=== PATIENT | male | born 1980 | race Caucasian/White ===

== ENCOUNTER 2023-02-12 18:04 | Emergency (ER) | payer MEDICAID, SELFPAY ==
[2023-02-12 18:08] VITALS: BP 120/68; PULSE 89; RESP 16; TEMP 36.6; O2SAT 99; BMI 22.2
--- NOTE | 2023-02-12 18:18 | XR_ITS ---
The [address] [address] Patient Name: ALEXANDRIA LOPEZ MRN: [id number] date: 1980 Sex: M Assigned Patient Location: ER Current Patient Location: Accession/Order Number: [id number] Exam Date: 02/12/2023 18:25 Report Date: 02/12/2023 19:00 At the request of: ALIREZA DIAS Procedure: XR chest 1V EXAMINATION: XR chest 1V 02/12/2023 3:59 PM PST HISTORY: Cough TECHNIQUE: Single frontal view of the chest acquired. COMPARISONS: Chest x-ray 03/21/2012. FINDINGS: Lines/tubes/other: None. Heart and mediastinum: The heart and the mediastinum are within normal limits for technique. Bones: No acute osseous abnormality. Lungs: Small benign calcified granuloma in the lateral aspect of the right upper lung zone. No evidence of pneumonia or pulmonary edema. Pleura: There is no significant pleural effusion or pneumothorax. Other: None. XR/XR chest 1V IMPRESSION: No acute cardiopulmonary abnormality. Electronically authenticated by: ZELALEM TORRE Date: 02/12/2023 19:00
--- NOTE | 2023-02-12 18:19 | ED_ITS ---
HPI - URI/Sore Throat General Chief Complaint: Upper Respiratory Infection Stated Complaint: FLU Like Time Seen by Provider: 02/12/23 18:06 Source: patient Limitations: no limitations History of Present Illness HPI Narrative: Patient is a 42-year-old male who presents to the emergency department for the evaluation of flulike illness that began today. Patient reports diffuse body aches, subjective fever, 1 episode of emesis earlier. He has had nasal congestion, cough. He is not producing any sputum. He is a heavy cigarette smoker. No sick contacts in the home. He did not take any medications prior to arrival, he arrives to the ER afebrile with stable vital signs. Related Data Previous Rx's Medication Instructions Recorded albuterol sulfate 90 mcg/actuation 2 inh inhalation Q4H PRN shortness 02/12/23 aerosol inhaler of breath or wheezing #8.5 grams jbfnqieuqnwzrzb-kvyodsaczmrykro-EX 10 ml PO Q6H PRN cold symptoms 02/12/23 2 mg-30 mg-10 mg/5 mL oral syrup #200 mL (Bromfed DM) methylprednisolone 4 mg tablets in See Rx Instructions .Route 02/12/23 a dose pack (Medrol (Robert)) .COMPLEX #21 ea ondansetron 4 mg disintegrating 4 mg PO Q6H PRN nausea and 02/12/23 tablet vomiting #12 tabs Allergies Allergy/AdvReac Type Severity Reaction Status Date / Time No Known Drug Allergies Allergy Verified 02/12/23 18:13 Review of Systems ROS Constitutional Denies: fever or chills Ears, nose, mouth, and throat Reports: nasal congestion; Denies: throat pain Cardiovascular Denies: chest pain Respiratory Reports: cough and wheezing; Denies: shortness of breath Gastrointestinal Reports: vomiting; Denies: nausea or diarrhea Musculoskeletal Denies: back pain Integumentary/Breast Denies: rash Neurological Reports: headache PFSH PFSH Social History Smoking status: Current every day smoker Exam Narrative Exam Narrative: Gen.: Awake, alert, in no distress Head: Normocephalic, atraumatic ENT: Moist mucous membranes, bilateral TMs clear, no pharyngeal erythema Respiratory: No respiratory distress, harsh cough noted with diffuse expiratory wheezing Cardio: Regular rate and rhythm Extremities: Moves extremities equally Psych: Normal mood and affect Neuro: No focal neuro deficit Skin: Warm, dry, intact Constitutional Vital Signs, click to edit/add: Last Vital Signs Temp 97.9 F 02/12/23 18:08 Pulse 100 H 02/12/23 19:00 Resp 18 02/12/23 19:00 BP 120/68 02/12/23 18:08 Pulse Ox 97 02/12/23 19:00 O2 Del Method Room Air 02/12/23 19:00 Course Vital Signs Vital signs: Vital Signs Temperature 97.9 F 02/12/23 18:08 Pulse Rate 89 02/12/23 18:08 Respiratory Rate 16 02/12/23 18:08 Blood Pressure 120/68 02/12/23 18:08 Pulse Oximetry 99 02/12/23 18:08 Oxygen Delivery Method Room Air 02/12/23 18:08 Temperature 97.9 F 02/12/23 18:08 Pulse Rate 100 H 02/12/23 19:00 Respiratory Rate 18 02/12/23 19:00 Blood Pressure 120/68 02/12/23 18:08 Pulse Oximetry 97 02/12/23 19:00 Oxygen Delivery Method Room Air 02/12/23 19:00 MDM - URI/Sore Throat MDM Narrative Medical decision making narrative: Patient is negative for COVID, influenza. He was given a breathing treatment, prednisone, Zofran in the ER. Chest x-ray shows no evidence of acute cardiopulmonary changes. No antibiotics will be given his symptom started today, patient will be placed on albuterol inhaler, Zofran, prednisone, Bromfed- DM. He is encouraged to continue Motrin and Tylenol. Follow-up with PCP and return to the ER if symptoms change or worsen. Medical Records Attestation: I reviewed the patient's medical records. Lab Data Attestation: I reviewed the patient's lab results. Labs: Lab Results 02/12/23 Range/Units 18:15 SARS-CoV-2 (PCR) Negative (NEGATIVE) Influenza Type A Ag Negative Influenza Type B Ag Negative Imaging Data Chest x-ray: Attestation: I have reviewed the pertinent imaging results. Radiologist's impression: Procedure: XR chest 1V EXAMINATION: XR chest 1V 02/12/2023 3:59 PM PST HISTORY: Cough TECHNIQUE: Single frontal view of the chest acquired. COMPARISONS: Chest x-ray 03/21/2012. FINDINGS: Lines/tubes/other: None. Heart and mediastinum: The heart and the mediastinum are within normal limits for technique. Bones: No acute osseous abnormality. Lungs: Small benign calcified granuloma in the lateral aspect of the right upper lung zone. No evidence of pneumonia or pulmonary edema. Pleura: There is no significant pleural effusion or pneumothorax. Other: None. IMPRESSION: No acute cardiopulmonary abnormality. Electronically authenticated by: ZELALEM TORRE Date: 02/12/2023 19:00 Discharge Plan Discharge Chief Complaint: Upper Respiratory Infection Clinical Impression: Upper respiratory infection Patient Disposition: Home, Self-Care Time of Disposition Decision: 19:11 Condition: Good Prescriptions / Home Meds: New methylprednisolone [Medrol (Robert)] 4 mg tablets,dose pack See Rx Instructions .ROUTE .COMPLEX Qty: 21 0RF Rx Instructions: Taper as directed albuterol sulfate 90 mcg/actuation HFA aerosol inhaler 2 inh inhalation Q4H PRN (Reason: shortness of breath or wheezing) Qty: 8.5 0RF puwtrcodtblwsff-kxqfmwrnk-LY [Bromfed DM] 2-30-10 mg/5 mL syrup 10 ml PO Q6H PRN (Reason: cold symptoms) Qty: 200 0RF ondansetron 4 mg tablet,disintegrating 4 mg PO Q6H PRN (Reason: nausea and vomiting) Qty: 12 0RF Instructions: Upper Respiratory Infection (ED), Viral Syndrome (ED) Stand Alone Forms: Portal Instructions Referrals: Physician,Non-Staff, MD [Primary Care Provider] - 1 week
[2023-02-12] MEDS: ONDANSETRON 4 MG RAPDIS TABLET SL (18:36)
[2023-02-12] MEDS: PREDNISONE 20 MG TABLET 60 MG PO (18:36)
[2023-02-12 18:56] LABS: Influenza Virus A Antigen Negative; Influenza Virus B Antigen Negative; Internal Control Within Normal Limits; SARS-CoV-2 Ag NEGATIVE (NEGATIVE)
[2023-02-12 19:00] VITALS: PULSE 100; RESP 18; O2SAT 97
[2023-02-12] MEDS: ALBUTEROL SULFATE 2.5 MG/3 ML VIAL NEB IH (19:00)
[2023-02-12 19:08] VITALS: PULSE 99; RESP 18; O2SAT 99
[2023-02-13 15:49] LABS: SARS-CoV-2 NAA NOT DETECTED (NOT DETECTE)
== END 2023-02-12 19:28 | disposition home or self-care (01) ==
PROVIDERS: Physician Assistant; Emergency Provider Emergency Medicine
DX: J06.9 Acute upper respiratory infection, unspecified (principal); F17.210 Nicotine dependence, cigarettes, uncomplicated; Z20.822 Contact with and (suspected) exposure to COVID-19
CPT/HCPCS: 71045; 87635; 87804; 87811; 94640; 99284